=== PATIENT | male | born 1950 | race Caucasian/White ===

== ENCOUNTER → 2018-02-03 | Outpatient (CLI) | payer MEDICARE, OTHER ==
--- NOTE | 2018-02-03 23:07 | RAD ---
Testicular ultrasound History: LT TESTICLE PAIN 4 TO 5 DAYS NO KNOWN INJURY, SWELLING STARTED TODAY . Comparison: None. Technique: Multiple grayscale, color flow Doppler and Doppler spectral analysis images of the scrotum are obtained. Findings: Right testicle measures 4.9 x 3.2 x 2.2 cm. Right testicle demonstrates normal parenchymal echogenicity. The right epididymis is unremarkable. Left testicle measures 4.6 x 2.9 x 2.6 cm. Left testicle demonstrates normal parenchymal echogenicity. The left epididymis is enlarged and hyperemic. There is no varicocele. Mild left scrotal wall thickening. Trace right hydrocele. There is a large septated left hydrocele. Doppler imaging demonstrates normal flow to both testicles, without evidence of torsion. IMPRESSION: 1. The left epididymis is enlarged and hyperemic suggestive of epididymitis. 2. Large septated left hydrocele. 3. No evidence of testicular mass or torsion. Electronically signed by: Filipe Miranda MD (02/03/2018 11:04 PM) [facility]
== END | disposition home or self-care (01) ==
LOC: US 21:32
DX: N43.2 Other hydrocele (principal)
CPT/HCPCS: 76870